=== PATIENT | female | born 1990 | race Caucasian/White ===

== ENCOUNTER 2022-02-25 08:50 | Emergency (ER) | payer OTHER, SELFPAY ==
[2022-02-25 09:00] VITALS: BP 131/104; PULSE 79; RESP 20; TEMP 37.2; O2SAT 98
--- NOTE | 2022-02-25 09:14 | ED.URI ---
HPI - URI/Sore Throat General Chief Complaint: Upper Respiratory Infection Stated Complaint: sore through, productive cough, ear pain Time Seen by Provider: 02/25/22 09:05 Source: patient Mode of arrival: ambulatory Limitations: no limitations History of Present Illness HPI Narrative: Rupa is a 31-year-old female patient presenting to the clinic today with complaints of sore throat, productive cough, and bilateral ear pain. She reports her fever has been as high as 100.4 ? F. Patient did at home COVID testing that was negative. Her symptoms began 4-5 days ago. Patient is 18 weeks . MD elicited complaint: sore throat and nasal congestion Related Data Home Medications Medication Instructions Recorded Confirmed aspirin 81 mg tablet,delayed mg 02/25/22 release Allergies Allergy/AdvReac Type Severity Reaction Status Date / Time No Known Allergies Allergy Verified 02/25/22 09:32 Review of Systems Review of Systems: Pertinent positives per HPI. Patient denies any rash, headache, visual changes, dizziness, shortness of breath, chest pain, palpitations, nausea, vomiting, diarrhea, constipation, abdominal pain, or any urinary issues. PMFSH Comments At the time of my signature, I reviewed and agree with the nursing past medical, surgical, social, and family history. There is no relevant family history pertinent to the patient complaint. Exam Narrative: General: Well-developed, well nourished, in no apparent distress Head: Normocephalic, atraumatic Eyes: Pupils equally round and reactive to light bilaterally, EOM intact, sclera and conjunctive clear, no discharge, lids normal Ears: TMs intact and clear, ear canals clear, no drainage, grossly hearing normal. Nose: Nares patent, clear nasal discharge, no inflammation, no sinus tenderness. Mouth: Oral pharynx without lesions or masses, good dentition, MMM. Postnasal drip Neck: Supple, trachea midline, no enlargement of anterior or posterior cervical nodes, no thyroid masses or goiter palpable. Cardio: Regular rate and rhythm, s1 and s2 normal, no murmur appreciated. Resp: Clear to auscultation bilaterally, no rhonchi, rales, wheezing or rubs Course Course Emergency Course: Portions of this record may have been created with voice recognition software. Level of Care: Express Care Visit Vital Signs Vital signs: Vital Signs Temperature 37.2 C 12/27/22 09:00 Pulse Rate 79 02/25/22 09:00 Respiratory Rate 20 02/25/22 09:00 Blood Pressure 131/104 H 02/25/22 09:00 Pulse Oximetry 98 02/25/22 09:00 Temperature 37.2 C 02/25/22 09:00 Pulse Rate 79 02/25/22 09:00 Respiratory Rate 20 02/25/22 09:00 Blood Pressure 131/104 H 02/25/22 09:00 Pulse Oximetry 98 02/25/22 09:00 Vital signs reviewed MDM - URI/Sore Throat MDM Narrative Medical decision making narrative: At the time of the patient is resting comfortably on the exam table. Influenza testing was completed in the clinic and was positive for influenza A. Urinalysis was completed to check for protein and it was negative in the clinic today. She does have 1+ leukocyte with urinary frequency. Will go ahead and treat her for a urinary tract infection as she is 18 weeks . Prescription for Macrobid was sent to the pharmacy. Supportive measures were discussed with the patient she voiced understanding of discharge instructions. We did discuss her blood pressure and she plans to contact her OBGYN regarding this after she leaves here today. Differential Diagnosis Differential diagnosis: Likely upper respiratory infection, otitis media, sinusitis, viral infection, bronchitis, influenza, pharyngitis and other (COVID) Lab Data Labs: Urine Glucose Negative Reference Range: Negative Urine Bilirubin Negative Reference Range: Negative Urine Ke
--- NOTE | 2022-02-25 09:26 | PC.NURSE ---
0920- pt giving urine specimen at present, due to being 18 weeks , and since she is having some higher blood pressures than her usual we are checking urine for protein.
== END 2022-02-25 09:37 | disposition home or self-care (01) ==
PROVIDERS: Emergency Provider Nurse Practitioner Family
DX: J10.1 Influenza due to other identified influenza virus with other respiratory manifestations (principal); N30.00 Acute cystitis without hematuria; I10 Essential (primary) hypertension; Z79.82 Long term (current) use of aspirin
CPT/HCPCS: 81003; 87086; 87088; 87804; 99213; G0463